=== PATIENT | female | born 1995 | race Caucasian/White ===

== ENCOUNTER 2018-12-14 16:52 | Emergency (ER) | payer SELFPAY ==
[2018-12-14] MEDS: BACITRACIN 0.9 GM OINT TOP (19:10)
[2018-12-14] MEDS: LIDOCAINE 1% (MDV) 20 ML INJ SC (19:10)
== END 2018-12-14 19:30 | disposition home or self-care (01) ==
LOC: FTE 16:52
DX: L60.0 Ingrowing nail (principal); L02.611 Cutaneous abscess of right foot
CPT/HCPCS: 11750; 81025; 99283-25

== ENCOUNTER 2019-01-12 18:17 | Emergency (ER) | payer SELFPAY | END 2019-01-12 20:55 | disposition home or self-care (01) | LOC: FTE 18:17 | DX: L60.0 Ingrowing nail (principal); L03.031 Cellulitis of right toe | CPT/HCPCS: 99283 ==